=== PATIENT | male | born 1970 | race Caucasian/White ===

== ENCOUNTER 2020-07-21 22:15 | Emergency (ER) | payer OTHER ==
[~2020-07-21] VITALS: Ht 167.6 cm; Wt 63.5 kg
[2020-07-21] MEDS ORDERED: LORCET 5-325 M1 EACH PO (23:24)
[2020-07-21] MEDS ORDERED: BACTRIM DS TAB1 EACH PO (23:24)
[2020-07-21] MEDS ORDERED: KEFLEX500 M1 PO (23:24)
[2020-07-21 23:36] VITALS: BP 122/74
== END 2020-07-21 23:38 | disposition home or self-care (01) ==
LOC: M.ERS 22:15
DX: L03.116 Cellulitis of left lower limb (principal); Z88.0 Allergy status to penicillin; Z88.1 Allergy status to other antibiotic agents